=== PATIENT | female | born 1985 | race Caucasian/White ===

== ENCOUNTER 2017-04-05 09:36 | Emergency (ER) | payer OTHER ==
[2017-04-05 09:52] VITALS: BMI 25.4
[2017-04-05 09:55] VITALS: BP 113/73; PULSE 81; RESP 18; TEMP 99.3; O2SAT 100
--- NOTE | 2017-04-05 10:03 | C.PDOC ---
History Of Present Illness 31 y/o female, 6 weeks , presents to ED c/o lower abdominal pain associated with 1 episode of vomiting today. Pt states she vomited after taking vitamins with milk. Denies headache, fever, chills, diarrhea, urinary symptoms, or vaginal bleeding. Pt states she was evaluated at [facility] yesterday for abdominal pain and had ultrasound done. Notes her OB doctor is on vacation. Time Seen by Provider: 04/05/17 10:01 Chief Complaint (Nursing): Abdominal Pain History Per: Patient History/Exam Limitations: no limitations Onset/Duration Of Symptoms: Days Current Symptoms Are (Timing): Still Present Location Of Pain/Discomfort: Suprapubic Radiation Of Pain To:: None Quality Of Discomfort: "Pain" Associated Symptoms: Vomiting. denies: Fever, Chills, Diarrhea, Urinary Symptoms Recent travel outside of the [place]: No Abnormal Vaginal Bleeding: No Past Medical History Reviewed: Historical Data, Nursing Documentation, Vital Signs Vital Signs: Last Vital Signs Temp 99.3 F 04/05/17 09:52 Pulse 81 04/05/17 09:52 Resp 18 04/05/17 09:52 BP 113/73 04/05/17 09:52 Pulse Ox 100 04/05/17 10:03 - Medical History PMH: Asthma - [facility] Procedures INJECT/INFUSE ELECTROLYT (07/08/15) INJECT/INFUSE NEC (07/08/15) Family History: States: Unknown Family Hx - Social History Hx Tobacco Use: Yes Hx Alcohol Use: No Hx Substance Use: No - Immunization History Hx Tetanus Toxoid Vaccination: No Hx Influenza Vaccination: No Hx Pneumococcal Vaccination: No Review Of Systems Except As Marked, All Systems Reviewed And Found Negative. Constitutional: Negative for: Fever, Chills Cardiovascular: Negative for: Chest Pain Gastrointestinal: Positive for: Nausea, Vomiting, Abdominal Pain. Negative for : Diarrhea Genitourinary: Negative for: Vaginal Discharge, Vaginal Bleeding, Pelvic Pain Skin: Negative for: Rash Physical Exam - Physical Exam Appears: Non-toxic, No Acute Distress, Other (eating breakfast) Skin: Normal Color, Warm, Dry Head: Atraumatic, Normacephalic Oral Mucosa: Moist Chest: Symmetrical Cardiovascular: Rhythm Regular Respiratory: Normal Breath Sounds, No Rales, No Rhonchi, No Wheezing Gastrointestinal/Abdominal: Soft, Tenderness (minimally tender, suprapubic), No Distention, No Guarding, No Rebound Extremity: Normal ROM, Capillary Refill (< 2 sec.) Neurological/Psych: Oriented x3, Normal Speech, Normal Cognition ED Course And Treatment O2 Sat by Pulse Oximetry: 100 (RA) Pulse Ox Interpretation: Normal Medical Decision Making Medical Decision Makin31 year old female presents to ER with complaints of abdominal pain. Patient states she was seen at [facility] yesterday and does not understand her results , she wants another evaluation and opinion and to speak with OB. Patient appears well in no acute distress. She has azalia donuts and eating at bedside. Prior record reviewed from [place]. Patient had full workup including labs and US. Beta HCG, Quant 52924.00 US IMPRESSION: 1. Twin intrauterine gestations. A small gestational sac without pole or yolk sac likely represents blighted ovum. 2. Solitary live intrauterine gestation. Gestational age 6 weeks 3 days reflects concordance with gestational age derived from the LMP. bradycardia. Chart well documented and describes OB consult with Dr. Baxter regarding ultrasound report. He recommended repeat transvaginal ultrasound in 1-2 weeks by her private HOSPICE RN to recheck embryo heart rate. I printed out US report for patient and explain result and no further evaluation indicated at this time. Patient stable for discharge. Patient to follow up with her OB Dr Monterroso in 1-2 weeks. Disposition Counseled Patient/Family Regarding: Diagnosis, Need For Followup - Disposition Referrals: Kiet Dean MD [Staff Provider] - Disposition: HOME/ ROUTINE Disposition Time: 11:00 Condition: STABLE Additional Instructions: It is important that you follow up with your bug trimmer in 5-7 days for repeat bloodwork and ultrasound Prescriptions: Doxylamine/Pyridoxine HCl (B6) [Ursula Grimm 10-10 mg Tablet] 1 each PO Q8 PRN # 21 tablet.dr CHANDLER Reason: Nausea/Vomiting Instructions: Pelvic Pain in Women (ED) - POA Present On Arrival: None - Clinical Impression Clinical Impression: Pelvic pain during - PA / LINING STRAP CLOSER / Resident Statement MD/ has reviewed & agrees with the documentation as recorded. - Scribe Statement The provider has reviewed the documentation as recorded by the Scribjose guadalupe RUFFIN All medical record entries made by the Scribe were at my direction and personally dictated by me. I have reviewed the chart and agree that the record accurately reflects my personal performance of the history, physical exam, medical decision making, and the department course for this patient. I have also personally directed, reviewed, and agree with the discharge instructions and disposition.
== END 2017-04-05 11:05 | disposition home or self-care (01) ==
LOC: C.ER 09:36
DX: O26.891 Other specified pregnancy related conditions, first trimester (principal); R10.2 Pelvic and perineal pain; Z3A.01 Less than 8 weeks gestation of pregnancy

== ENCOUNTER 2017-11-09 08:09 | Inpatient (IN) | payer MEDICAID ==
[2017-11-09] MEDS ORDERED: Sodium Citrate/Citric Acid 15 ml Sol PO ONE (09:48)
[2017-11-09] MEDS: Lactated Ringer's 1,000 ML IV SCH ×2 (10:08→11:15)
[2017-11-09 10:40] LABS: BASO % 0.5 % (0.0-2.0); EOS # 0.2 K/uL (0.0-0.7); EOS % 2.1 % (0.0-4.0); HEMOGLOBIN 10.2 g/dL (11.0-16.0); LYMPH # 2.4 K/uL (1.0-4.3); LYMPH % 25.4 % (20.0-40.0); MEAN CELL VOLUME 87.5 fL (81.0-99.0); MEAN CORPUSCULAR HGB CONC 34.3 g/dL (33.0-37.0); MEAN PLATELET VOLUME 7.8 fL (7.2-11.7); RBC 3.4 Mil/uL (3.80-5.20); RED CELL DISTRIBUTION WIDTH 13.7 % (11.5-14.5); WHITE BLOOD COUNT 9.6 K/uL (4.8-10.8)
[2017-11-09 10:41] LABS: SQUAMOUS EPITHIAL 1 /hpf (0-5); URINE BILIRUBIN NEGATIVE (NEGATIVE); URINE BLOOD NEGATIVE (NEGATIVE); URINE CLARITY Clear (Clear); URINE COLOR Yellow (YELLOW); URINE GLUCOSE (UA) NORMAL (Normal); URINE LEUKOCYTE ESTERASE NEG Leu/uL (Negative); URINE NITRATE NEGATIVE (NEGATIVE); URINE PROTEIN NEGATIVE (NEGATIVE); URINE UROBILINOGEN NORMAL mg/dL (0.2-1.0)
[2017-11-09] MEDS ORDERED: Sodium Citrate/Citric Acid 15 ml Sol ONE (12:00)
[2017-11-09] MEDS ORDERED: cefOXitin 2 GM in Sodium Chloride 0.9% 100 ML IVPB ONE (12:00)
--- NOTE | 2017-11-09 12:39 | OBADHP ---
Datetime: 11/09/2017 11:29 Admit Comment, IP Provider: 32 y.o. , LMP 02/04/17, EDDN/01/07, EGA 37w 5d for primary C/S du e to marginal placenta praevia. (+) AFM; denies LOF, VB or Ctx. care: Dr. Galeana; noted for d iagnosis of placenta praevia. P Ob: x 2: both males, both at 38 weeks: 2001, 6lb 9oz; 2005, 6lb 5oz, 2004, VTOP, 4 wk; no complications P ADVICE NURSE: 15 x 28 x 5-6. 2007, abnl Pap, S/P colpo, all Pap negative since. (+0 h/o chlamydia PMH: denies PSH: D_C NKDA Meds: PNV Soc Hx: (+) tobacco use: prior to 1 ppd x 9 years; none since first trimester. (+) h/o marijuana use; none in . Denies EtOH use. Lives with FOB; together x 3 1/2 years. Fam Hx: Mother alive 60 y.o. HTN, DM; Father alive 65 y.o.- glauscoma. PatGM - ovarian cancer P.E.: as above. WD in NAD. Awake, alert, oriented to time, person and place. pel[place] and coopera tive Assessment: 32 y.o. P2012, 37w 5d for elective primary C/S due to placenta praevia. Category 1 tr acing. Consents to be obtained by priv OB, Dr. Galeana. Clinically stable. Plan: 1) Admit 2) NPO 3) IVFs 4) Admission labs 5) Mancia 6) Abdominal prep and shave 7) Notify anesthesia 8) Notify peds 9) senior safety support manager to O.R. - As per Dr. Galeana Pelvic Type - PN: Not Done Extremities - PN: Normal Abdomen - PN: Normal Back - PN: Normal Breast - PN: Not Done Lungs - PN: Normal Heart - PN: Normal Thyroid - PN: Not Done Neurologic - PN: Normal HEENT - PN: Normal General - PN: Normal FHR - Baseline A Provider: 140 Contraction Comments Provider: irregular Comments, ACOG Physical Exam: Abdomen: Gravid. Soft. non tender. Fundal height 40 cm All other systems reviewed and are negative IP Hx Assessment: The History has been Reviewed and is Current IP Chief Complaint: Scheduled Section NICHD Variability Prov Fetus A: Moderate 6-25bpm NICHD Accel Fetus A IP Provider: [id number] FHR Category Provider Fetus A: Category I NICHD Decel Fetus A IP Provider: None Dilatation, Provider: deferred Genitourinary Exam: Not Done DTRs - PN: Not Done EGA AdmitDate IP: 37.5 IP Adm Impression: Term, intrauterine ; Intact Membranes IP Admit Plan: Admit to unit; Initiate Section protocol
[2017-11-09] MEDS ORDERED: Oxytocin 10 Units/ml Inj ONE (13:25)
[2017-11-09] MEDS ORDERED: Oxycodone/Acetaminophen 5/325 mg Tab PO PRN (13:46)
[2017-11-09] MEDS: cefOXitin 2 GM in Sodium Chloride 0.9% 100 ML IV SCH ×2 (14:00→22:00)
--- NOTE | 2017-11-09 14:26 | OP ---
PROCEDURE DATE: 11/09/2017 PREOPERATIVE DIAGNOSES: Intrauterine at 37 weeks, posterior placenta previa at 37 weeks' gestation. POSTOPERATIVE DIAGNOSIS: Intrauterine at 37 weeks, posterior placenta previa at 37 weeks' gestation. PROCEDURE: Lower segment section. SURGEON: Cat Greenberg MD. TYPE OF ANESTHESIA: Spinal. FINDINGS: A live female infant. Apgars 9 at one minute and 9 at five minutes with normal tubes and ovaries. ESTIMATED BLOOD LOSS: 400 mL. COMPLICATIONS: Nil. DESCRIPTION OF PROCEDURE: After the risks, benefits and alternatives of the planned procedures including but not limited to infection, hemorrhage, deep vein thrombosis, atelectasis, pneumonia, pulmonary embolism, damage to the bladder, damage to the ureter, renal insufficiency, renal failure, wound infection, wound dehiscence, incisional hernia, keloid formation, damage to the large and small intestine, damage to the inferior vena cava and aorta requiring extensive repair, anesthesia complications, electrolyte imbalance, possibility of , fluid overload, cerebral edema, air embolism and other complications that were discussed, but are not listed above, have been explained to the patient and all her questions answered and informed consent was obtained. The patient was taken to the operating room in a stable condition. Under suitable level of spinal analgesia, she was prepped and draped in a sterile fashion after having been placed in a supine position. The abdomen was entered through a Pfannenstiel-type incision, carried through the subcutaneous tissues to the fascia. Fascia was opened transversely and dissected off the rectus abdominis musculature. The rectus abdominis musculature was then in the midline to remove the parietal peritoneum, which was entered sharply and incised superiorly and inferiorly. The bladder peritoneum was then incised in a curvilinear fashion and dissected off the lower uterine segment. The lower uterine segment was then entered through a curvilinear incision. Surgeon's fingers were inserted into the lower uterine segment to grasp the 's head, which was lying in a right occipital anterior position. The head was easily delivered. Nose and mouth were suctioned free of amniotic fluid and the remainder of the was delivered without any difficulty. Cord was doubly clamped and cut and the baby was handed over to the pediatricians who were in attendance. Cord blood was collected, Pitocin running, placenta was manually removed. The endometrium was then cleaned free of remaining membranes and clots. The uterine incision was then closed in layers with the first layer being a running interlocking layer using #1 chromic and the second layer being used to imbricate the first layer. Hemostasis was good. The bladder peritoneum was then reapproximated using running suture of 2-0 chromic. Peritoneal cavity was irrigated using copious amounts of saline. The saline was evacuated. The abdomen was then closed in layers with 0 chromic to the parietal peritoneum. Recti muscles were reapproximated using interrupted sutures of 0 chromic. Fascia was reapproximated using interrupted sutures of 0 plain and the initial skin incision was reapproximated using 4-0 Vicryl in a subcuticular fashion. Estimated blood loss for the procedure was 400 mL. Pad, needle and instrument counts were correct x2. There were no complications. Cat Greenberg MD
[2017-11-09] MEDS: Simethicone 80 mg Chewtab PO SCH ×2 (15:43→21:59)
[2017-11-10] MEDS: cefOXitin 2 GM in Sodium Chloride 0.9% 100 ML IV SCH ×2 (05:38→14:26)
--- NOTE | 2017-11-10 07:28 | HP ---
HISTORY OF PRESENT ILLNESS: The patient is a 32-year-old female, 5, para 2 with a due date of 11/25/2017. 37 weeks 5 days with a history of placenta previa, who is coming in for an elective section. The patient's course was significant for persistent posterior placenta previa. She has had no episode of bleeding. Rest of the course has been essentially unremarkable. The patient is currently on Vitafol Ultra 1 tablet daily. PAST OBSTETRICAL HISTORY: Significant for 2 normal spontaneous vaginal deliveries in 2005 and 2001 ex full-term and 2 termination of pregnancies in 2008 and 2009, both in the first trimester. ALLERGIES: NONE. SOCIAL HISTORY: She does not smoke or drink. MEDICATIONS: Currently, she is not taking any calcium or airborne medications. PHYSICAL EXAMINATION: VITAL SIGNS: Her blood pressure is 110/70, pulse is 72, respiratory rate of 20, temperature is 98.8. HEAD, EYES, EARS,NOSE AND THROAT: Examinations are within normal. CHEST: Clear. CARDIAC: Reveals normal heart sounds without any murmurs. LUNGS: Clear. BREASTS: Revealed no masses. ABDOMEN: Soft. Symphyseal-fundal height is 39 cm, longitudinal lie vertex. heart tones are normal. PELVIC: She has a normal vulva. No digital pelvic exam was done. ADMITTING DIAGNOSES: Intrauterine at 37 weeks, placenta previa. PLAN: To perform a lower segment section. Prior to being scheduled for the surgical procedure, the patient underwent an informed consent discussion and education session with me in the hospital lasting approximately 45 minutes, during which time I explained with an understandable terms the following, the nature and extent of her disease process and the nature and extent of the contemplated operation. Also explained were the risks and potential complications of the operative procedures to include, but not limited to infection, hemorrhage, deep vein thrombosis, atelectasis, pneumonia, pulmonary embolism, damage to the bladder, damage to the ureter, renal insufficiency, renal failure, wound infection, wound dehiscence, incisional hernia, keloid formation, damage to large and small intestines, damage to inferior vena cava and the aorta requiring extensive repair, anesthesia complications, electrolyte imbalance, possibility of , fluid overload, cerebral edema, embolism, low scores, breathing difficulties in the baby and other complications that were discussed, but are not listed above. I also discussed with the patient the anticipated benefits and results of the surgery including a conservative estimate of the successful outcome. I discussed with the patient about the operation that are not accomplished. I informed the patient of the possibility of unanticipated pathology requiring a more extensive procedure. All of the questions from the patient were encouraged, welcomed and answered to her satisfaction. The patient was given the opportunity to store her own blood for using in autologous blood transfusion prenatally and she had declined. Cat Greenberg MD
[2017-11-10 08:18] LABS: BASO # 0.1 K/uL (0.0-0.2); BASO % 0.6 % (0.0-2.0); EOS # 0.1 K/uL (0.0-0.7); EOS % 0.6 % (0.0-4.0); LYMPH # 1.7 K/uL (1.0-4.3); LYMPH % 14.8 % (20.0-40.0); MEAN CELL VOLUME 88.3 fL (81.0-99.0); MEAN CORPUSCULAR HEMOGLOBIN 30.2 pg (27.0-31.0); MEAN CORPUSCULAR HGB CONC 34.2 g/dL (33.0-37.0); MEAN PLATELET VOLUME 7.6 fL (7.2-11.7); MONO # 0.2 K/uL (0.0-0.8); MONO % 1.8 % (0.0-10.0); NEUT # 9.2 K/uL (1.8-7.0); NEUT % 82.2 % (50.0-75.0); NRBC % 0.1 % (0.0-2.0); RBC 2.06 Mil/uL (3.80-5.20); RED CELL DISTRIBUTION WIDTH 13.4 % (11.5-14.5); WHITE BLOOD COUNT 11.2 K/uL (4.8-10.8)
[2017-11-10 08:28] LABS: HEMOGLOBIN 6.2 g/dL (11.0-16.0)
[2017-11-10] MEDS: Simethicone 80 mg Chewtab PO SCH ×5 (09:53→21:48)
[2017-11-10] MEDS: Enoxaparin 40 mg Syringe SC SCH (09:54)
[2017-11-10] MEDS: Oxycodone/Acetaminophen 5/325 mg Tab PO PRN ×3 (11:16→21:47)
[2017-11-10] MEDS ORDERED: Bisacodyl 5mg EC Tab PO ONE (13:47)
[2017-11-11] MEDS: Oxycodone/Acetaminophen 5/325 mg Tab PO PRN ×2 (01:40→09:20)
[2017-11-11] MEDS ORDERED: Influenza Vaccine 60 mcg/0.5 mL SYR (4YR UP) IM ONE (08:07)
[2017-11-11 09:09] LABS: BASO # 0.1 K/uL (0.0-0.2); BASO % 0.3 % (0.0-2.0); EOS # 0.1 K/uL (0.0-0.7); EOS % 0.7 % (0.0-4.0); LYMPH # 2.7 K/uL (1.0-4.3); LYMPH % 14.9 % (20.0-40.0); MEAN CELL VOLUME 89.5 fL (81.0-99.0); MEAN CORPUSCULAR HEMOGLOBIN 30.2 pg (27.0-31.0); MEAN CORPUSCULAR HGB CONC 33.8 g/dL (33.0-37.0); MEAN PLATELET VOLUME 7.9 fL (7.2-11.7); MONO # 1.8 K/uL (0.0-0.8); MONO % 10.1 % (0.0-10.0); NEUT # 13.4 K/uL (1.8-7.0); RBC 3.47 Mil/uL (3.80-5.20); RED CELL DISTRIBUTION WIDTH 13.7 % (11.5-14.5)
[2017-11-11 09:12] LABS: HEMOGLOBIN 10.5 g/dL (11.0-16.0); WHITE BLOOD COUNT 18.2 K/uL (4.8-10.8)
[2017-11-11] MEDS: Enoxaparin 40 mg Syringe SC SCH (09:20)
[2017-11-11] MEDS: Simethicone 80 mg Chewtab PO SCH ×3 (09:21→22:26)
[2017-11-12 07:54] VITALS: PULSE 79; TEMP 98.5; O2SAT 98
[2017-11-12] MEDS: Oxycodone/Acetaminophen 5/325 mg Tab PO PRN (09:01)
[2017-11-12] MEDS: Simethicone 80 mg Chewtab PO SCH (09:02)
[2017-11-12] MEDS: Enoxaparin 40 mg Syringe SC SCH (09:02)
[2017-11-12 15:50] VITALS: BP 115/72; RESP 18
--- NOTE | 2017-11-12 21:35 | PN ---
DATE: SUBJECTIVE: The patient has no complaints. She is passing flatus. She is status post transfusion. Hemoglobin is 10. OBJECTIVE: VITAL SIGNS: Stable. She is afebrile. ABDOMEN: Soft. Incision is clean and intact. EXTREMITIES: Nontender with no evidence of DVT. CHEST: Clear. CARDIAC EXAMINATION: Reports normal heart sounds without any murmurs. ASSESSMENT AND PLAN: The patient is status post section day #2, status post transfusion. Plan is to ambulate and advance diet. Cat Greenberg MD
== END 2017-11-12 11:49 | disposition home or self-care (01) | DRG 371 ==
LOC: C.4D 09:38 → C.4M 16:39
PROVIDERS: ADMIT Obstetrics & Gynecology Reproductive Endocrinology; ATTEND Obstetrics & Gynecology Reproductive Endocrinology
PROC: 10D00Z1 Extraction of Products of Conception, Low, Open Approach (ICD-10-PCS; principal; 2017-11-09)
DX: O44.03 Complete placenta previa NOS or without hemorrhage, third trimester (principal); Z87.891 Personal history of nicotine dependence; Z3A.37 37 weeks gestation of pregnancy; Z37.0 Single live birth